=== PATIENT | female | born 2000 | race Caucasian/White ===

== ENCOUNTER 2025-02-20 11:33 | Emergency (ER) | payer OTHER, BC ==
[~2025-02-20] VITALS: Ht 157.5 cm; Wt 46.7 kg
[2025-02-20 12:50] LABS: *BILIRUBIN,URIN NEGATIVE (NEGATIVE); *BLOOD, URINE NEGATIVE (NEGATIVE); *CLARITY,URINE CLEAR (CLEAR); *COLOR,URINE YELLOW (YELLOW); *KETONES,URINE NEGATIVE (NEGATIVE); *PROTEIN,URINE NEGATIVE (NEGATIVE); *UROBILINOGEN,URINE 0.2 E.U./dl (NORMAL); LEUKOCYTE ESTERASE ,URINE NEGATIVE (NEGATIVE); NITRITE, URINE NEGATIVE (NEGATIVE); UGLUCOSE NEGATIVE (NEGATIVE)
[2025-02-20] MEDS ORDERED: BACITRACIN ZINC OINT 15 GM TUBE ONE (12:56)
[2025-02-20 13:11] LABS: PLATELET COUNT (AUTO) 301 K/uL (179-408); RED BLOOD CELL COUNT(AUTO) 4.63 MIL/uL (3.63-4.92); RED CELL DISTRIBUTION WIDTH 12.5 % (12.3-17.7); WHITE BLOOD COUNT (AUTO) 6.9 K/uL (3.8-11.8)
[2025-02-20] MEDS: BACITRACIN ZINC OINT 15 GM TUBE TOP ONE (13:17)
[2025-02-20 13:29] LABS: CREATININE 0.7 mg/dL (0.6-1.3); SODIUM SERUM 139 mmol/L (136-145); UREA NITROGEN, BLOOD 14 mg/dL (7-18)
[2025-02-20 13:34] LABS: ASPARTATE AMINOTRANSFERASE 27 U/L (15-37); TOTAL PROTEIN, SERUM 8.0 g/dL (6.4-8.2)
[2025-02-20] MEDS ORDERED: RIBO100T3 PO (13:46)
[2025-02-20] MEDS ORDERED: SUMA100T16 PO (13:46)
[2025-02-20] MEDS ORDERED: NAPR500T6 PO (13:46)
[2025-02-20 13:53] VITALS: BP 122/65; TEMP 98; O2SAT 100
== END 2025-02-20 13:55 | disposition home or self-care (01) ==
LOC: ER 11:33
DX: G43.909 Migraine, unspecified, not intractable, without status migrainosus (principal); R55 Syncope and collapse
CPT/HCPCS: 36415; 84484; 85025; A4606; A4663